=== PATIENT | male | born 1980 | race Caucasian/White ===

== ENCOUNTER 2016-12-29 00:26 | Emergency (ER) | payer SELFPAY ==
--- NOTE | 2016-12-29 00:44 | Emergency Department Record ---
History of Present Illness - General Chief complaint: Male Urogenital Problem Stated complaint: HERNIA/TESTICLE PAIN Time Seen by Provider: 12/29/16 00:29 Source: Patient, Family Mode of Arrival: Ambulatory Limitations: No limitations - History of Present Illness Initial comments: 36 yo male presents with right lower groin and testiclular pain that he awoke with this morning. The pain has intensified all day and has been constant. He has had some nausea and vomited. He has noted some swelling of the testicle on the right. He felt it doubled in size. He only has one testicle. The other was removed after a traumatic injury playing hockey. Today's pain started at 7: 30am and was 10/10 at that time. He has had about 17 hours of constant unchanging pain. He does have a history of a left sided hernia that did not require surgical repair. [facility] was [facility] Complaint: Testicle pain, Other (Groin pain) -: Hour(s) (17) Location: Abdomen, Right testicle Radiation: Other (right testicle) Severity scale (1-10): 8 Quality: Aching, Stabbing Consistency: Constant Improves with: Rest Worsens with: Movement Reports: Denies other symptoms - Related Data Home Medications Medication Instructions Recorded Confirmed Last Taken Celexa (Uknown Dose) 12/29/16 Unknown Flexeril (Uknown Dose) 12/29/16 Unknown Gabapentin (Uknown Dose) 12/29/16 Unknown Tramadol (Uknown Dose) 12/29/16 Unknown Allergies Allergy/AdvReac Type Severity Reaction Status Date / Time No Known Drug Allergies Allergy Verified 12/29/16 00:36 Review of Systems Constitutional: Denies: Chills, Fever, Weakness Eyes: Denies: Eye discharge, Eye pain ENT: Denies: Congestion, Throat pain Respiratory: Denies: Cough Cardiovascular: Denies: Chest pain, Palpitations, Syncope Gastrointestinal: Reports: Abdominal pain. Denies: Diarrhea, Nausea, Vomiting Genitourinary: Reports: Testicular pain. Denies: Dysuria, Frequency, Hematuria , Incontinence, Urgency Musculoskeletal: Denies: Arthralgia, Back pain, Neck pain Skin: Denies: Bruising, Change in color, Rash Neurological: Denies: Headache Psychiatric: Denies: Anxiety Hematological/Lymphatic: Denies: Blood Clots, Easy bleeding, Easy bruising, Swollen glands Physical Exam - General General Appearance: Alert, Oriented x3, Cooperative, No acute distress, Anxious (due to pain) Limitations: No limitations - Head Head exam: Normal inspection - Eye Eye exam: Normal appearance - ENT ENT exam: Normal exam Ear exam: Normal external inspection Nasal Exam: Normal inspection Mouth exam: Normal external inspection Teeth exam: Normal inspection - Neck Neck exam: Normal inspection, Full ROM. negative: Tenderness - Respiratory Respiratory exam: Normal lung sounds bilaterally. negative: Respiratory distress - Cardiovascular Cardiovascular Exam: Regular rate, Normal rhythm, Normal heart sounds - GI/Abdominal GI/Abdominal exam: Soft, Tenderness (he is tender deep in the right inguiinal region, no obvious mass, on standing and strain to obvious bulge or mass) - Rectal Rectal exam: Deferred - exam: Circumcision, Scrotal swelling, Testicular tenderness, Other (The right testicle is swollen and tender to palpation, It is mobile but very tender to palpation, no obvious large hernia in the scrotum, ). negative: Normal inspection - Extremities Extremities exam: Normal inspection, Full ROM, Normal capillary refill. negative: Tenderness - Back Back exam: Reports: Normal inspection, Full ROM. Denies: Muscle spasm, Rash noted, Tenderness - Neurological Neurological exam: Alert, Normal gait, Oriented X3 - Psychiatric Psychiatric exam: Normal affect, Normal mood - Skin Skin exam: Dry, Intact, Normal color, Warm Course - Reevaluation(s) Reevaluation #1: The patient was seen and examined. He has tenderness low right inguinal into the right testicle. No obvious large mass or bulge even with standing, I discussed a transfer to a facility with US/Urology given his pain in the testicle and only one. The patient requested [facility] for transfer. [facility] will be contacted now to arrange a transfer. I explained that if it is the testicle it could already be a permanent injury due to length of time of pain. I SW Dr Hodges of the [facility] ED The plan is to transfer now for US and then CT if necessary. 12/29/16 00:46 12/29/16 00:48 Reevaluation #2: I performed a counter clockwise rotation of the testicle. He states he did get some relief. EMS present for transfer for stat US or urology consult 12/29/16 01:06 Reevaluation #3: The patient now demands to go by private car. I explained this could cause delays and make his condition worse or loose a testicle. he understand this and accepts the risk. He will sign out AMA knowing he is taking on the risk of permanent damage or loss of the testicle. He will sign the AMA form. 12/29/16 01:13 12/29/16 01:18 Medical Decision Making - Lab Data Result diagrams: 12/29/16 00:45 12/29/16 00:45 Disposition Disposition: Transfer Clinical Impression: Testicle pain, Left against medical advice Abdominal pain Qualifiers: Abdominal location: unspecified location Qualified Code(s): R10.9 - Unspecified abdominal pain Transfer To: [facility] Reason For Transfer: Testicle Pain, rule out torsion Accepting Physician: Carroll Time Discussed w/Accepting Physician: 01:00 Condition: (3) Guarded Additional Instructions: Go directly to [facility] for evaluation you are signing out AMA do not eat or drink on the way Forms: Patient Portal Access Time of Disposition: :17
[2016-12-29 00:50] LABS: BASO % 0.3 % (0-6); EOS % 3.4 % (0-6); GRAN % 45.1 % (47-80); HEMATOCRIT 41.2 % (42.0-52.0); HEMOGLOBIN 13.9 gm/dl (14.0-18.0); LYMPH % 37.9 % (16-45); MEAN CELL VOLUME 86.6 fl (81-97); MEAN CORPUSCULAR HEMOGLOBIN 29.2 pg (27-33); MEAN CORPUSCULAR HGB CONC 33.7 g/dl (32-36); MEAN PLATELET VOLUME 9.5 fl (7.4-10.4); MONO % 13.3 % (0-9); PLATELET COUNT 256 K/uL (130-400); RED BLOOD COUNT 4.76 M/uL (4.40-5.70); RED CELL DISTRIBUTION WIDTH 13.6 % (11.5-14.5); WHITE BLOOD COUNT W/O DIFF 10.6 K/uL (4.2-12.2)
[2016-12-29] MEDS: KETOROLAC 30 MG/ML VIAL IVP ONE (00:51)
[2016-12-29] MEDS: MORPHINE SULFATE 5 MG/ML PFS IVP ONE (00:51)
[2016-12-29] MEDS: 0.9 % SODIUM CHLORIDE 1,000 ML BAG IV ONE (00:51)
[2016-12-29] MEDS: ONDANSETRON HCL IV 4 MG/2 ML VIAL IV ONE (00:51)
[2016-12-29 01:00] LABS: LACTIC ACID 1.1 mmol/L (0.7-2.1)
[2016-12-29 01:01] LABS: ANION GAP 8.9 (7-16); BLOOD UREA NITROGEN 10 mg/dL (9-20); CARBON DIOXIDE 25.1 mmol/L (22-30); CREATININE 0.8 mg/dL (0.66-1.25); EST GLOMERULAR FILTRATION RATE > 60 ml/min; GLUCOSE,RANDOM 98 mg/dL (70-110)
== END 2016-12-29 01:36 | disposition left against medical advice (07) ==
LOC: ER 00:26
DX: N50.811 Right testicular pain (principal); R11.2 Nausea with vomiting, unspecified; R10.31 Right lower quadrant pain
CPT/HCPCS: 80048; 83605; 83690; 85025; 96361; 96374; 96375; 99284; J1885; J2405; J7030